=== PATIENT | female | born 1985 | race Caucasian/White ===

== ENCOUNTER 2021-03-28 15:34 | Emergency (ER) | payer OTHER ==
[~2021-03-28] VITALS: Ht 154.9 cm; Wt 86.6 kg
[2021-03-28] MEDS ORDERED: KETO10TA2 PO (18:28)
[2021-03-28] MEDS ORDERED: TAMS0.4C PO (18:55)
[2021-03-28] MEDS ORDERED: NASAL MIST126 ML (19:37)
== END 2021-03-28 21:40 | disposition home or self-care (01) ==
LOC: ER 15:34
DX: N20.0 Calculus of kidney (principal); R10.32 Left lower quadrant pain

== ENCOUNTER 2021-05-04 08:00 | Outpatient (CLI) | payer OTHER ==
[~2021-05-04 08:00] MED LIST: KETO10TA2 PO; NASAL MIST126 ML; TAMS0.4C PO
== END 2021-05-04 08:30 | disposition home or self-care (01) ==
LOC: PPH VACUNA 08:00
DX: Z23 Encounter for immunization (principal)

== ENCOUNTER 2021-05-12 00:05 | Emergency (ER) | payer OTHER ==
[~2021-05-12] VITALS: Ht 154.9 cm; Wt 90.3 kg
[2021-05-12] MEDS ORDERED: MOBIC15 MG PO (07:59)
[2021-05-12] MEDS ORDERED: NORFLEX100MG PO (07:59)
== END 2021-05-12 08:18 ==
LOC: ER 00:05
DX: M43.16 Spondylolisthesis, lumbar region (principal)

== ENCOUNTER 2021-05-25 09:00 | Outpatient (CLI) | payer OTHER ==
[~2021-05-25 09:00] MED LIST changes: +MOBIC15 MG PO; +NORFLEX100MG PO
== END 2021-05-25 09:05 | disposition home or self-care (01) ==
LOC: PPH VACUNA 09:00
PROVIDERS: ATTEND Emergency Medicine Pediatric Emergency Medicine
DX: Z23 Encounter for immunization (principal)